=== PATIENT | male | born 1985 | race Two or more races ===

== ENCOUNTER 2025-07-15 09:45 | Day surgery (SDC) | payer BC, SELFPAY ==
[2025-07-14 14:30] VITALS: BMI 35.7
[2025-07-15] VITALS (13 sets, daily range): BP systolic 141–183; BP diastolic 83–116; PULSE 59–87; RESP 12–22; TEMP 36.2–36.6; O2SAT 94–97; BMI 37.7
[2025-07-15] MEDS: hydrALAZINE INJ 20 MG/ML VIAL 10 MG IVP ×2 (10:28→11:31)
[2025-07-15] MEDS: SODIUM CHLORIDE 0.9% 500 ML 500 ML 20 ML IV (11:21)
[2025-07-15] MEDS: MIDAZOLAM INJ 1 MG/ML VIAL 2 ML (ASD USE ONLY) 2 MG IVP (11:27)
[2025-07-15] MEDS: fentaNYL CIT INJ 50 mCg/ML AMP 2ML (ASD USE ONLY) IVP (11:27)
== END 2025-07-15 12:25 | disposition home or self-care (01) ==
PROVIDERS: PCP Internal Medicine; Referring Provider Specialist; Visit Provider Specialist
PROC: 0DBE8ZX Excision of Large Intestine, Via Natural or Artificial Opening Endoscopic, Diagnostic (ICD-10-PCS; CPT 45380; principal; 2025-07-15 11:00)
DX: K64.2 Third degree hemorrhoids (principal); I10 Essential (primary) hypertension; Z79.899 Other long term (current) drug therapy
CPT/HCPCS: 45398; A4217; A4649; J0360; J1200; J2250; J3010; J7999